=== PATIENT | male | born 1965 | race Caucasian/White ===

== ENCOUNTER 2022-04-06 16:28 | Emergency (ER) | payer BC ==
--- OUTSIDE RECORDS SUMMARY | 2022-04-06 16:31 | XMS REPORT | Continuity of Care Document ---
:1965 Author Organization [facility] t Address [address] [place] [address] Care Team Providers Name Role Phone Kasi Barrientos MD Primary Care Physician YAHAIRA ALVES Attending Clinician Unavailable MD YAHAIRA ALVES Attending Clinician Unavailable Mat Swift Attending Clinician CAROLANN DRISCOLL Attending Clinician Unavailable LISSETH ROBINS Attending Clinician Unavailable YAHAIRA ALVES Admitting Clinician Unavailable MD YAHAIRA ALVES Admitting Clinician Unavailable Payers Payer Name Policy Type Policy Number Effective Date Expiration Date S [facility] - [id number] 2017 00:00:00 OUT OF STATE Problems Condition Condition Condition Status Onset Resolution Last Treating Co mments Source Name Details Category Date Date Treatment Clinician Date Surgery Surgery Disease Active Methodi follow-up follow-up 10-15 00:00: Hospita 00 l Class 3 Class 3 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 3-15 st obesity obesity 00:00: Hospita due to due to 00 l excess excess calories calories with with serious serious comorbidit comorbidit y in adult y in adult 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 00:00: Hospit a on both on both 00 l sides sides Essential Essential Disease Recurre Me thodi hypertensi hypertensi nce 3-15 st on on 00:00: Hospita 00 l Carpal Carpal Problem Active 2020-05-25 Preston alfonso tunnel tunnel 01:00:53 l syndrome syndrome Jhon n (disorder) (disorder) Active Problem 05/25/2020 [facility] Cervical Cervical Problem Active 2020-05-25 [facility] radiculopa radiculopa 01:00:53 l thy thy [place] (disorder) (disorder) Active Problem 05/25/2020 [facility] Allergies, Adverse Reactions, Alerts Allergy Allergy Status Severity Reaction(s) Onset Inactive Treating Comm ents Source Name Type Date Date Clinician NO KNOWN Drug Active Univers ALLERGIE Class ity of S [facility] Family History Family Member Diagnosis Comments Start Date Stop Date Source Maternal grandfather Diabetes [facility] Maternal grandfather Cancer [facility] Maternal grandmother Cancer [facility] Maternal grandmother Diabetes [facility] Natural mother Heart disease [facility] Natural mother Hypertension [facility] Natural brother Heart disease [facility] Natural brother Hypertension [facility] Natural father Arthritis [facility] father Heart disease [facility] father Hypertension [facility] Social History Social Habit Start Date Stop Date Quantity Comments Source Alcohol intake 2020-10-02 2020-10-02 Current drinker [facility] 00:00:00 00:00:00 of alcohol Hospital (finding) Tobacco use and 2020-09-23 2020-09-23 Smokeless tobacco Me [facility] exposure 00:00:00 00:00:00 non-user Hospital Social History 2020-05-23 2020-05-23 [facility] 04:59:59 04:59:59 Alcohol Comment 2020-04-30 2020-04-30 3 drinks/week Method ist 00:00:00 00:00:00 Hospital Sex Ass[birth year] At [birth year] M [facility] 00:00:00 00:00:00 Hospital Smoking Status Start Date Stop Date Source Never smoked tobacco [facility] Medications Ordered Filled Start Stop Current Ordering Indication Dosage Frequency Signature Comments Components Source Medication Medication Date Date Medication? Clinician (SIG) Name Name multivitami Yes Take by Met hodi n/iron/foli 8-[address] c acid 15:43: Hospita (CENTRUM 01 l COMPLETE ORAL) ibuprofen Yes 600mg Q6H Take 600 Met [facility] (ADVIL) 600 8-[address] MG tablet 15:43: mouth Hospita 01 every 6 l (six) hours as needed for mild pain. acetaminoph Yes 500mg Q6H Take 500 M ethodi en 8-[address] (TYLENOL) 15:43: mouth Hospita 500 MG 01 every 6 l tablet (six) hours as needed for mild pain. gabapentin Yes TAKE ONE Met [facility]odi (NEURONTIN) [address] 300 mg 00:00: MOUTH Hospita capsule 00 THREE l TIMES A DAY losartan Yes Methodi (COZAAR) 2-12 st 100 MG 00:00: Hospita tablet 00 l fenofibrate 2019-02 Yes Method i (TRICOR) 2-17 st 145 MG 00:00: Hospita tablet 00 l Procedures This patient has no known procedures. Plan of Care Planned Activity Planned Date Details Comments Source Future Scheduled 2022-02-07 Hepatitis C screening [facility] Test 19:15:12 (procedure) [code = 831589437] Future Scheduled 2022-02-07 COLONOSCOPY SCREENING [facility] Test 19:15:12 [code = COLONOSCOPY SCREENING] Future Scheduled 2022-02-07 SHINGLES VACCINES (1 [facility] Test 19:15:12 of 2) [code = SHINGLES VACCINES (1 of 2)] Future Scheduled 2022-02-07 COVID-19 VACCINE (3 - Me [facility] Test 19:15:12 Booster for Moderna series) [code = COVID-19 VACCINE (3 - Booster for Moderna series)] Future Scheduled 2022-02-07 INFLUENZA VACCINE [facility] Test 19:15:12 [code = INFLUENZA VACCINE] Encounters Start End Encounter Admission Attending Care Care Encounter Source Date/Time Date/Time Type Type Clinicians Facility Department ID 2020-11-13 2020-11-13 Outpatient [facility] [id number] [place] 00:00:00 00:00:00 YAHAIRA [address] 2020-10-15 2020-10-15 Outpatient [facility] [id number] [place] 00:00:00 00:00:00 YAHAIRA [address] 2020-10-01 2020-10-01 Outpatient ALVES, [facility] [id number] [place] 00:00:00 00:00:00 YAHAIRA 290 Method i 2020-09-26 2020-09-26 Outpatient ALVES, [facility] [id number] [place] 00:00:00 00:00:00 YAHAIRA [address] 2020-09-23 2020-09-23 Outpatient ALVES, [facility] [id number] [place] 00:00:00 00:00:00 YAHAIRA 242 Method i 2020-07-07 2020-07-07 Outpatient ALVES, [facility] [id number] [place] 00:00:00 00:00:00 YAHAIRA 404 Method i 2020-07-07 2020-07-07 Outpatient ALVES, [facility] [id number] [place] 00:00:00 00:00:00 YAHAIRA 624 Method i 2020-07-07 2020-07-07 Outpatient ALVES, [facility] [id number] [place] 00:00:00 00:00:00 YAHAIRA 136 Method i 2020-06-12 2020-06-12 Outpatient ALVES, [facility] [id number] [place] 00:00:00 00:00:00 YAHAIRA 898 Method i 2020-06-02 2020-06-02 Outpatient ALVES, [facility] [id number] [place] 00:00:00 00:00:00 YAHAIRA 706 Method i 2020-05-21 2020-05-23 Outside nullFlavo MNA [id number] [facility] 19:29:15 04:59:59 Medical r Neurology 03 l Records [place] 2020-05-21 2020-05-23 Outside nullFlavo MNA [id number] [facility] 19:29:15 04:59:59 Medical r Neurology 03 l Records [place] 2020-05-21 2020-05-22 Outpatient MHMISCHER MHMISCHER [id number] 14:29:15 23:59:59 2020-05-16 2020-05-18 Outside nullFlavo MNA [id number] [facility] 14:16:48 04:59:59 Medical r Neurology 02 l Records [place] 2020-05-16 2020-05-18 Outside nullFlavo MNA [id number] [facility] 14:16:48 04:59:59 Medical r Neurology 02 l Records Maria Del Rosario Breaux 2020-05-16 2020-05-17 Outpatient MHMISCHER MHMISCHER [id number] 09:16:48 23:59:59 02 2020-05-05 2020-05-05 Outpatient ALVES, [facility] [id number] [place] 00:00:00 00:00:00 YAHAIRA 320 Method i 2020-05-05 2020-05-05 Outpatient REEDLEY, [facility] [id number] [place] 00:00:00 00:00:00 YAHAIRA 318 Method i 2020-05-05 2020-05-05 Outpatient ALVES, [facility] [id number] [place] 00:00:00 00:00:00 YAHAIRA [address] 2020-05-05 2020-05-05 Outpatient [facility] [id number] [place] 00:00:00 00:00:00 YAHAIRA 783 Method i 2020-04-27 2020-04-27 Outpatient [facility] [id number] Univers 13:35:00 13:35:[facility] 2020-[facility] 2020-04-06 Outside nullFlavo MNA [id number] [facility] 16:43:01 05:59:59 Medical r Neurology 01 l Records Maria Del Rosario Breaux 2020-04-04 2020-04-06 Outside nullFlavo MNA [id number] [facility] 16:43:01 05:59:59 Medical r Neurology 01 l Records Maria Del Rosario Breaux 2020-04-04 2020-04-05 Outpatient MHMISCHER MHMISCHER [id number] 10:43:01 23:59:59 2020-03-31 2020-04-02 Outside nullFlavo MNA [id number] [facility] 22:13:05 05:59:59 Medical r Neurology 00 l Records Maria Del Rosario Breaux 2020-03-31 2020-04-02 Outside nullFlavo MNA [id number] [facility] 22:13:05 05:59:59 Medical r Neurology 00 l Records Maria Del Rosario Breaux 2020-03-31 2020-04-01 Outpatient MISCHER MISCHER [id number] 16:13:05 23:59:59 00 2020-03-30 2020-03-30 Outpatient [facility] [id number] Univers 13:40:00 13:40:00 [facility] 2020-03-28 2020-03-29 Outpatient nullFlavo MNA [id number] [facility] 14:15:00 05:59:59 r Neurology 00 l Maria Del Rosario Batistaann 2020-03-28 2020-03-29 Outpatient nullFlavo MNA [id number] [facility] 14:15:00 05:59:59 r Neurology 00 l Maria Del Rosario Breaux 2020-03-28 2020-03-28 [id number] 08:15:00 23:59:59 Mat 00 Kenny 2020-03-28 2020-03-28 Outpatient BERE BLACKBURN [id number] [facility] 08:15:00 08:15:00 00 frandy Breaux 2019-11-22 2019-11-22 [facility] [id number] Univers 16:00:00 16:00:00 [facility] 2019-11-15 2019-11-15 [facility] [id number] Univers 16:00:00 16:00:00 [facility] 2019-11-08 2019-11-08 [facility] [id number] Univers 16:00:00 16:00:00 [facility] 2019-10-25 2019-10-25 [facility] [id number] Univers 15:15:00 15:15:00 [facility] Results Test Description Test Time Test Comments Results Result Comments Source SARS-CoV-2 (COVID-19) RNA [Presence] in Respiratory sp ecimen by 2020-09-26 19:47:53 BERTA with probe detection Test Item Value Reference Range Interpretation Comme nts SARS-CoV-2 (COVID-19) RNA [Presence] in Respiratory Not detected No t-Detected specimen by BERTA with probe detection (test code = 48248-6) Whether patient is employed in a healthcare setting (test code = 45307-9) Whether the patient has symptoms related to condition of interest (test code = 96829-4) Patient was hospitalized because of this condition (test code = 69243-2) Whether the patient was admitted to intensive care unit (ICU) for condition of interest (test code = 35555-3) Whether patient resides in a congregate care setting (test code = 37302-1) CHERYLE DIXON
[2022-04-06 18:07] LABS: Absolute Lymphocytes (CBC) 1.9 K/uL (0.7-4.9); Hematocrit 43.6 % (39.6-49.0); Lymphocytes % 17.2 % (15.3-44.8); MCV 86.2 fL (80-100); RBC Red Blood Cell Count 5.06 M/uL (4.33-5.43)
--- NOTE | 2022-04-06 18:13 | RAD REPORT ---
EXAM DESCRIPTION: RAD - Hand Right 3 View - 04/06/2022 5:44 pm CLINICAL HISTORY: PAIN COMPARISON: No comparisons FINDINGS: Moderate soft tissue swelling is seen adjacent to the fifth metacarpal shaft. No soft tiss ue gas is seen. No fracture or foreign body.
[2022-04-06 18:44] LABS: C-Reactive Protein 11.8 mg/L (<3.00)
[2022-04-06 18:45] LABS: Potassium 4.2 mmol/L (3.5-5.1)
--- NOTE | 2022-04-06 19:19 | EDPHYS ---
Physician Documentation [facility] Name: Christiano Randolph Age: 56 yrs Sex: Male : 1965 Arrival Date: 04/06/2022 Time: 16:31 Bed 10 Private MD: Kasi Barrientos ED Physician Jung Bishop HPI: 04/06 17:30 This 56 yrs old Male presents to ER via Ambulatory with complaints of Insect Bite. cp 17:30 The patient or guardian reports pain, swelling, tenderness, erythema. The complaints cp affect the dorsum of right hand. 17:30 Context: Patient presents to the emergency department with concern for infection of his cp right hand. Patient reports noticing since this morning a small superficial wound over the knuckle of the right fifth finger. Patient believes he may have been bitten by a spider. And during the course of today has noticed progressively redness and some mild swelling to the wrist and distal forearm. Patient denies fever. Patient denies any known injury. Historical: - Allergies: 17:47 No Known Allergies; jl7 - Home Meds: 17:47 Tricor Oral [Active]; losartan oral [Active]; jl7 - PMHx: 17:47 Hypertensive disorder; Hypercholesterolemia; jl7 - PSHx: 17:47 Appendectomy; jl7 - Immunization history:: Client reports receiving the 2nd dose of the Covid vaccine. - Social history:: Smoking status: Patient denies any tobacco usage or history of. Patient uses alcohol, on a daily basis. one drink per day. ROS: 18:00 Eyes: Negative for injury, pain, redness, and discharge. cp 18:00 Constitutional: Positive for body aches, chills, Negative for fever, poor PO intake. 18:00 ENT: Negative for drainage from ear(s), ear pain, sore throat, difficulty swallowing, difficulty handling secretions. 18:00 Cardiovascular: Negative for chest pain, palpitations. 18:00 Respiratory: Negative for cough, shortness of breath, wheezing. 18:00 Abdomen/GI: Negative for abdominal pain, vomiting, diarrhea, constipation. 18:00 MS/extremity: Positive for erythema, pain, swelling, tenderness, of the dorsum of right hand, Negative for injury or acute deformity, decreased range of motion, paresthesias. 18:00 Neuro: Negative for altered mental status, dizziness, headache, weakness. 18:00 All other systems are negative. cp Exam: 18:05 Constitutional: The patient appears in no acute distress, alert, awake, non-toxic, well cp developed, well nourished, obese. 18:05 Head/Face: Normocephalic, atraumatic. cp 18:05 Eyes: Periorbital structures: appear normal, Conjunctiva: normal, no exudate, no injection, Sclera: no appreciated abnormality, Lids and lashes: appear normal, bilaterally. 18:05 ENT: External ear(s): are unremarkable, Nose: is normal, Mouth: Lips: moist, Oral mucosa: moist, Posterior pharynx: Airway: no evidence of obstruction, patent. 18:05 Chest/axilla: Inspection: normal. 18:05 Cardiovascular: Rate: normal, Pulses: Pulses are 2+ in right radial artery. 18:05 Respiratory: the patient does not display signs of respiratory distress, Respirations: normal, no use of accessory muscles, no retractions, labored breathing, is not present, Breath sounds: are clear throughout, no decreased breath sounds, no stridor, no wheezing. 18:05 Abdomen/GI: Exam negative for discomfort, distension, guarding, Inspection: abdomen appears normal. 18:05 Musculoskeletal/extremity: Extremities: noted in the dorsum of right hand: Examination of the right hand shows on the dorsal side right fifth metacarpal head there is a small superficial wound with mild ecchymosis, no drainage expressed, there is erythema that advances proximally past the wrist to the distal forearm with mild swelling. Mild tenderness to palpation. No active range of motion restriction at the wrist. Vital Signs: 17:42 BP 138 / 68; Pulse 80; Resp 15; Temp 96.8; Pulse Ox 98% on R/A; Weight 138.35 kg; jl7 Height 5 ft. 10 in. (177.80 cm); Pain 1/10; 17:42 Body Mass Index 43.76 (138.35 kg, 177.80 cm) jl7 MDM: 18:00 Differential diagnosis: open fracture, closed fracture, contusion, abscess, cellulitis. cp 18:08 Patient medically screened. cp 18:55 Data reviewed: vital signs, nurses notes, lab test result(s), radiologic studies, plain cp films. 18:55 Management of patient was discussed with the following: Primary Care Provider: DR pasquale Barrientos concerning labs and xrays. Discussed results and will administer IV and oral antibiotics and discharge to home for f/u tomorrow. 19:18 Test considered but Not performed: Ultrasound right arm. cp 19:18 Care significantly affected by the following chronic conditions: Hypertension. cp Counseling: I had a detailed discussion with the patient and/or guardian regarding: the historical points, exam findings, and any diagnostic results supporting the discharge/admit diagnosis, lab results, radiology results, the need for outpatient follow up, a family practitioner. Response to treatment: the patient's symptoms have mildly improved after treatment, and as a result, I will discharge patient. 04/06 17:09 Order name: CBC with Diff 04/06 17:09 Order name: BMP 04/06 17:09 Order name: Lactate w/ 2H reflex if indic. cp 04/06 17:09 Order name: CRP 04/06 18:08 Order name: CBC with Automated Diff; Complete Time: 18:50 EDMS 04/06 18:24 Order name: Lactate w/ 2H reflex if indic.; Complete Time: 18:50 EDMS 04/06 17:09 Order name: XRAY Hand RIGHT 3 View 04/06 17:09 Order name: IV; Complete Time: 19:01 04/06 18:09 Order name: Labs - recollect needed: recollect green top; Complete Time: 18:26 bd 04/06 18:14 Order name: RAD; Complete Time: 18:50 EDMS 04/06 18:51 Interpretation: Report reviewed. 04/06 18:46 Order name: Basic Metabolic Panel; Complete Time: 18:50 EDMS 04/06 18:51 Interpretation: Normal except: CL 110; GLUC 118; BUN 19; GFR 73. 04/06 18:46 Order name: C-Reactive Protein; Complete Time: 18:50 EDMS Administered Medications: 07:25 Drug: Bactrim (trimethoprim-sulfamethoxazole) (160 mg-800 mg (DS) 2 tablet Route: PO; kl 20:43 Follow up: Response: No adverse reaction kl 19:30 Drug: Clindamycin 900 mg Route: IVPB; Infused Over: 30 mins; Site: right antecubital; kl 20:43 Follow up: IV Status: Completed infusion; IV Intake: 100ml kl Disposition Summary: 04/06/22 19:19 Discharge Ordered Location: Home cp Problem: new cp Symptoms: have improved cp Condition: Stable cp Diagnosis - Cellulitis of right upper limb - hand and forearm cp Followup: cp - With: Kasi Barrientos MD - When: Tomorrow - Reason: Recheck today's complaints Discharge Instructions: - Discharge Summary Sheet cp - Cellulitis, Adult cp Forms: - Medication Reconciliation Form cp - Thank You Letter cp - Antibiotic Education cp - Prescription Opioid Use cp Prescriptions: - Clindamycin HCl 300 mg Oral Capsule - take 1 capsule by ORAL route every 6 hours for 10 days; 40 capsule; Refills: 0, cp Product Selection Permitted - Bactrim DS 800-160 mg Oral Tablet - take 1 tablet by ORAL route every 12 hours for 10 days; 20 tablet; Refills: 0, cp Product Selection Permitted - Ibuprofen 800 mg Oral Tablet - take 1 tablet by ORAL route every 8 hours As needed take with food; 30 tablet; cp Refills: 0, Product Selection Permitted Signatures: Dispatcher [employer] EDTonya Warren Kimberly RN RN Samuel Wheeler PA PA cp Mariela Chance RN RN jl7 Corrections: (The following items were deleted from the chart) 18:54 18:54 Wound Care ordered. cp cp 04/07 18:23 04/06 19:15 Test considered but Not performed: Ultrasound right arm. cp cp
--- NOTE | 2022-04-06 19:19 | ER ---
Nurse's Notes [facility] Name: Christiano Randolph Age: 56 yrs Sex: Male : 1965 Arrival Date: 04/06/2022 Time: 16:31 Bed 10 Private MD: Kasi Barrientos Diagnosis: Cellulitis of right upper limb-hand and forearm Presentation: 04/06 17:42 Chief complaint: Patient states: Woke with scratch to right hand, swelling and pain jl7 noted this afternoon, Dr. Barrientos sent to ED. Coronavirus screen: Vaccine status: Patient reports receiving the 2nd dose of the covid vaccine. At this time, the client does not indicate any symptoms associated with coronavirus-19. Ebola Screen: No symptoms or risks identified at this time. Initial Sepsis Screen: Does the patient meet any 2 criteria? No. Patient's initial sepsis screen is negative. Does the patient have a suspected source of infection? No. Patient's initial sepsis screen is negative. Risk Assessment: Do you want to hurt yourself or someone else? Patient reports no desire to harm self or others. Onset of symptoms was April 06, 2022. 17:42 Method Of Arrival: Ambulatory 7 17:42 Acuity: KASIE 3 jl7 Triage Assessment: 17:47 Bite description: bite sustained to dorsum of right hand by an unknown animal, animal jl7 information: vaccination(s) is not applicable. General: Appears in no apparent distress. uncomfortable, Behavior is calm, cooperative, appropriate for age. Pain: Complains of pain in right hand Pain currently is 1 out of 10 on a pain scale. Historical: - Allergies: 17:47 No Known Allergies; jl7 - Home Meds: 17:47 Tricor Oral [Active]; losartan oral [Active]; jl7 - PMHx: 17:47 Hypertensive disorder; Hypercholesterolemia; jl7 - PSHx: 17:47 Appendectomy; jl7 - Immunization history:: Client reports receiving the 2nd dose of the Covid vaccine. - Social history:: Smoking status: Patient denies any tobacco usage or history of. Patient uses alcohol, on a daily basis. one drink per day. Screenin:32 [facility] ED Fall Risk Assessment (Adult) History of falling in the last 3 months, kl including since admission No falls in past 3 months (0 pts) Confusion or Disorientation No (0 pts) Intoxicated or Sedated No (0 pts) Impaired Gait No (0 pts) Mobility Assist Device Used No (0 pt) Altered Elimination No (0 pt) Score/Fall Risk Level 0 - 2 = Low Risk Oriented to surroundings, Maintained a safe environment. Abuse screen: Denies threats or abuse. Nutritional screening: On. Tuberculosis screening: No symptoms or risk factors identified. Assessment: 19:31 General: Appears in no apparent distress. comfortable, Behavior is calm, cooperative, kl appropriate for age. Pain: Complains of pain in right hand and dorsum of right hand Pain currently is 1 out of 10 on a pain scale. at worst was 8 out of 10 on a pain scale. Alleviated by rest, Aggravated by increased activity. Neuro: No deficits noted. Cardiovascular: No deficits noted. Respiratory: No deficits noted. GI: No deficits noted. : No deficits noted. EENT: No deficits noted. Derm: Skin has lesions on top of right band raised purple Skin is red. Vital Signs: 17:42 BP 138 / 68; Pulse 80; Resp 15; Temp 96.8; Pulse Ox 98% on R/A; Weight 138.35 kg; jl7 Height 5 ft. 10 in. (177.80 cm); Pain 1/10; 17:42 Body Mass Index 43.76 (138.35 kg, 177.80 cm) jl7 ED Course: 16:31 Patient arrived in ED. mr 16:31 Kasi Barrientos MD is Private Physician. mr 16:36 [facility] cp 16:37 uJng Bishop MD is Attending Physician. cp 17:47 Triage completed. jl7 17:47 Arm band placed on right wrist. jl7 17:49 Initial lab(s) drawn, by ED staff, sent to lab. Inserted saline lock: 20 gauge in right jl7 antecubital area, using aseptic technique. Blood collected. 19:18 Kasi Barrientos MD is Referral Physician. cp 20:55 No provider procedures requiring assistance completed. IV discontinued, intact, kl bleeding controlled, No redness/swelling at site. Pressure dressing applied. 20:56 Patient has correct armband on for positive identification. kl Administered Medications: 07:25 Drug: Bactrim (trimethoprim-sulfamethoxazole) (160 mg-800 mg (DS) 2 tablet Route: PO; kl 20:43 Follow up: Response: No adverse reaction 19:30 Drug: Clindamycin 900 mg Route: IVPB; Infused Over: 30 mins; Site: right antecubital; kl 20:43 Follow up: IV Status: Completed infusion; IV Intake: 100ml kl Medication: 20:56 VIS not applicable for this client. kl Intake: 20:43 IV: 100ml; Total: 100ml. Outcome: 19:19 Discharge ordered by . pasquale 20:56 Discharged to home ambulatory. kl 20:56 Condition: stable 20:56 Discharge instructions given to patient, Instructed on discharge instructions, follow up and referral plans. medication usage, Demonstrated understanding of instructions, follow-up care, medications, Prescriptions given X 3. 20:56 Patient left the ED. Signatures: Makenzie Banda, RN Perla Dooley mr Samuel Curtis PA PA cp Leal, Jahala, RN RN jl7
[2022-04-06] MEDS ORDERED: SMZ./TMP. 800/160 MG TABLET ONE (19:21)
[2022-04-06] MEDS ORDERED: CLINDAMYCIN 900MG/D5W 900 MG/50 ML IVPB IV ONE (19:22)
[2022-04-06 21:24] VITALS: BP 138/68; TEMP 96.8; O2SAT 98
== END 2022-04-06 20:56 | disposition home or self-care (01) ==
LOC: ER 16:28
DX: L03.113 Cellulitis of right upper limb (principal); I10 Essential (primary) hypertension; E78.00 Pure hypercholesterolemia, unspecified
CPT/HCPCS: 36415; 80048; 83605; 85025; 86140